=== PATIENT | female | born 1970 | race Caucasian/White ===

== ENCOUNTER → 2018-12-12 | Outpatient (CLI) | payer OTHER ==
--- NOTE | 2018-12-12 14:35 | MM ---
Reason for exam: screening (asymptomatic). Baseline mammogram. History: Patient is postmenopausal. Family history of breast cancer in maternal grandmother. Physical Findings: Nurse did not find any significant physical abnormalities on exam. (nurse MJ) MG Screening Mammo w CAD Bilateral CC and MLO view(s) were taken. No prior studies available for comparison. There are scattered fibroglandular densities. No suspicious abnormality. ASSESSMENT: Negative, BI-RAD 1 RECOMMENDATION: Routine screening mammogram of both breasts in 1 year.
== END | disposition home or self-care (01) ==
LOC: RADMAMWWP 12:53
PROVIDERS: ATTEND Family Medicine
DX: Z12.31 Encounter for screening mammogram for malignant neoplasm of breast (principal)
CPT/HCPCS: 77067

== ENCOUNTER → 2019-01-01 | Outpatient (CLI) | payer OTHER ==
--- NOTE | 2019-01-01 10:47 | US ---
EXAMINATION TYPE: US thyroid st tissue head/neck DATE OF EXAM: 01/01/2019 COMPARISON: NONE CLINICAL HISTORY: E04.9 NONTOXIC GOITER. Goiter GLAND SIZE: Right Lobe: 6.1 x 2.5 x 3.8 cm Overall Parenchyma: heterogenous Left Lobe: 6.3 x 2.9 x 2.9 cm Overall Parenchyma: heterogeneous Isthmus Thickness: 1.0 cm NODULES RIGHT: # of nodules measured on right: 1 1. 1.2 X 1.1 x 1.2 cm echogenic solid nodule at the mid pole with well-defined margins; . This nod ule is wider than tall and shows intranodular vascularity. Prior size: no prior LEFT: # of nodules measured on left: 0 ISTHMUS: # of nodules measured in the isthmus: 0 Bilateral neck scanned, lymph nodes noted left neck Heterogeneous, enlarged thyroid gland. Hyperechoic areas noted right lobe with largest measured IMPRESSION: Thyromegaly with findings suggestive of thyroiditis. 1.2 cm solid nodule right thyroid noted.
== END | disposition home or self-care (01) ==
LOC: RADUSWWP 09:53
PROVIDERS: ATTEND Family Medicine
DX: E04.9 Nontoxic goiter, unspecified (principal)
CPT/HCPCS: 76536

== ENCOUNTER → 2019-01-15 | Outpatient (CLI) | payer OTHER ==
[2019-01-15 18:35] LABS: T4, Free (Free Thyroxine) 1.5 ng/dL (0.80-1.80)
== END | disposition home or self-care (01) ==
LOC: LABWHC1 14:48
PROVIDERS: ATTEND Surgery Plastic and Reconstructive Surgery
DX: E04.1 Nontoxic single thyroid nodule (principal)
CPT/HCPCS: 36415; 84439; 84443; 84481

== ENCOUNTER 2019-01-25 09:10 | Day surgery (SDC) | payer OTHER ==
[2019-01-25 09:33] VITALS: TEMP 98
[2019-01-25 11:37] VITALS: BP 139/88; PULSE 74; RESP 16
--- NOTE | 2019-01-25 13:30 | US ---
EXAMINATION TYPE: US FNA thyroid first lesion DATE OF EXAM: 01/25/2019 COMPARISON: Ultrasound thyroid 01/01/2019 HISTORY: Thyroid nodule. Maximal barrier technique was utilized. After informed consent, skin overlying the dominant hyperech oic lesion in the right lobe of the gland was localized with ultrasound and the overlying skin preppe d and draped. Ultrasound was utilized using sterile technique. Lidocaine was used for local anesthesi a. Five passes with a 25-gauge needle were made into the nodule and aspirated specimen was submitted to cytology. Following the procedure hemostasis achieved. No immediate complication. The patient discharged in stable condition. IMPRESSION: STATUS POST ULTRASOUND GUIDED FINE NEEDLE ASPIRATION OF THYROID NODULE, PATHOLOGY IS PEND ING. THIS PROCEDURE WAS PERFORMED BY THE UNDERSIGNED.
== END 2019-01-25 11:20 | disposition home or self-care (01) ==
LOC: RADPROMAIN 09:10
PROVIDERS: ATTEND Surgery Plastic and Reconstructive Surgery
DX: E04.1 Nontoxic single thyroid nodule (principal)
CPT/HCPCS: 10005; 88173; 88305

== ENCOUNTER 2019-04-06 16:47 | Emergency (ER) | payer OTHER ==
[2019-04-06 16:51] VITALS: BP 126/80; PULSE 94; RESP 18; TEMP 97.8
[2019-04-06] MEDS ORDERED: PENICILLIN VK 500MG STARTER 4 TAB BTL PO STA (17:06)
[2019-04-06] MEDS ORDERED: ACET/COD 300 MG/30 MG STARTER PACK 6 TAB BTL PO STA (17:06)
--- NOTE | 2019-04-06 17:07 | ED ---
ENT HPI - General Chief complaint: Dental/Oral Stated complaint: Dental Source: patient Mode of arrival: ambulatory Limitations: no limitations - History of Present Illness Initial comments: 49-year-old female presenting for chief complaint of right lower dental pain. Patient states she has had multiple carious teeth as well as cracked teeth. She states she's had a cracked first quite some time. Patient states he began to develop pain yesterday. She is concerned she is helping infection. Patient has swelling of the face below the tongue of the neck she does fever chills night sweats or or flulike symptoms. Patient is no other complaints. Remaining review of system negative. Upon arrival patient appears well no signs acute distress. - Related Data Home Medications Medication Instructions Recorded Confirmed Levothyroxine Sodium [Levoxyl] 75 mcg PO DAILY 01/16/19 01/25/19 Previous Rx's Medication Instructions Recorded Penicillin V Potassium [Pen Vee K] 500 mg PO QID 7 Days #28 tablet 04/06/19 Allergies Allergy/AdvReac Type Severity Reaction Status Date / Time morphine Allergy Itching Verified 04/07/19 13:19 Review of Systems ROS Statement: Those systems with pertinent positive or pertinent negative responses have been documented in the HPI. ROS Other: All systems not noted in ROS Statement are negative. Past Medical History Past Medical History: Thyroid Disorder History of Any Multi-Drug Resistant Organisms: None Reported Past Surgical History: Section Additional Past Surgical History / Comment(s): eye surgery Past Psychological History: No Psychological Hx Reported Smoking Status: Never smoker Past Alcohol Use History: Rare Past Drug Use History: None Reported General Exam - General Exam Comments Initial Comments: General: The patient is awake and alert, in no distress, and does not appear acutely ill. Eye: Pupils are equal, round and reactive to light, extra-ocular movements are intact. No nystagmus. There is normal conjunctiva bilaterally. No signs of icterus. Ears, nose, mouth and throat: There are moist mucous membranes and no oral lesions. No palpable abscess adjacent to the gingival mucosa. Patient has focal cracked and carious teeth. Tenderness to to percussion of tooth #32. No swelling below tongue pain to palpation below the tongue. No facial swelling swelling below the angle of the mandible. Neck: The neck is supple, there is no tenderness or JVD. Cardiovascular: There is a regular rate and rhythm. No murmur, rub or gallop is appreciated. Respiratory: Lungs are clear to auscultation, respirations are non-labored, breath sounds are equal. No wheezes, stridor, rales, or rhonchi. Musculoskeletal: Normal ROM, no tenderness. Strength 5/5. Sensation intact. Pulses equal bilaterally 2+. Neurological: A&O x 3. CN II-XII intact, There are no obvious motor or sensory deficits. Coordination appears grossly intact. Speech is normal. Skin: Skin is warm and dry and no rashes or lesions are noted. Psychiatric: Cooperative, appropriate mood & affect, normal judgment. Limitations: no limitations Course Vital Signs 04/06/19 16:48 Temperature 97.8 F Pulse Rate 94 Respiratory 18 Rate Blood Pressure 126/80 O2 Sat by Pulse 98 Oximetry Medical Decision Making - Medical Decision Making Nontoxic-appearing 49yo female presented for dental pain pain to percussion to tooth #32. Patient does not appear septic no signs of Drew's angina. Patient be treated penicillin VK. Patient didn't starter pack of Tylenol No. 3 for pain management. Discussed risks involved and appropriate use. Patient verbalized understanding. Patient was discharged pain well with instruction to follow-up with dentist for tooth extraction. Case discussed with attending provider Dr. Andrea Disposition Clinical Impression: Pain, dental Disposition: HOME SELF-CARE Condition: Good Instructions (If sedation given, give patient instructions): Dental Abscess (ED) Additional Instructions: Please use medication as discussed, every 6 hours. Please follow-up with dentist in the next week for extraction. Next dose of PEN VK is 11PM. Please return to emergency room if the symptoms increase or worsen or for any other concerns, neck swelling, increasing facial swelling, difficulty breathing/swallowing, fevers, swelling below the tongue. Prescriptions: Penicillin V Potassium [Pen Vee K] 500 mg PO QID 7 Days #28 tablet Is patient prescribed a controlled substance at d/c from ED?: No Referrals: Tone Perdomo MD [Primary Care Provider] - 1-2 days Time of Disposition: 17:06
== END 2019-04-06 17:18 | disposition home or self-care (01) ==
LOC: EC 16:47
DX: K08.89 Other specified disorders of teeth and supporting structures (principal); K02.9 Dental caries, unspecified; K03.81 Cracked tooth; E07.9 Disorder of thyroid, unspecified; Z79.890 Hormone replacement therapy; Z88.5 Allergy status to narcotic agent
CPT/HCPCS: 99282

== ENCOUNTER 2019-04-07 12:59 | Emergency (ER) | payer OTHER ==
[2019-04-07 13:19] VITALS: RESP 18
[2019-04-07] MEDS ORDERED: CLINDAMYCIN 600 MG in DEXTROSE 5% IN WATER 50 ML IVPB STA ×2 (13:31)
--- NOTE | 2019-04-07 13:44 | ED ---
ENT HPI - General Chief complaint: Dental/Oral Stated complaint: recheck dental abscess Time Seen by Provider: 04/07/19 13:20 Source: patient, RN notes reviewed Mode of arrival: ambulatory Limitations: no limitations - History of Present Illness Initial comments: 49-year-old female presented emergency from for right-sided facial swelling, dental abscess. Patient reports that she was seen here yesterday for this dental infection. Patient was started on antibiotics and pain meds. She states she has extensive swelling today and states that she has pain in her jaw and neck at this time. Patient states she has difficulty opening close her mouth. Patient reports no difficulty swallowing. - Related Data Home Medications Medication Instructions Recorded Confirmed Levothyroxine Sodium [Levoxyl] 75 mcg PO DAILY 01/16/19 01/25/19 Previous Rx's Medication Instructions Recorded Penicillin V Potassium [Pen Vee K] 500 mg PO QID 7 Days #28 tablet 04/06/19 Allergies Allergy/AdvReac Type Severity Reaction Status Date / Time morphine Allergy Itching Verified 04/07/19 13:19 Review of Systems ROS Statement: Those systems with pertinent positive or pertinent negative responses have been documented in the HPI. ROS Other: All systems not noted in ROS Statement are negative. Past Medical History Past Medical History: Thyroid Disorder History of Any Multi-Drug Resistant Organisms: None Reported Past Surgical History: Section Additional Past Surgical History / Comment(s): eye surgery Past Psychological History: No Psychological Hx Reported Smoking Status: Never smoker Past Alcohol Use History: Rare Past Drug Use History: None Reported General Exam Limitations: no limitations General appearance: alert, in no apparent distress Head exam: Present: atraumatic, normocephalic, normal inspection Eye exam: Present: normal appearance, PERRL, EOMI. Absent: scleral icterus, conjunctival injection, periorbital swelling ENT exam: Present: mucous membranes moist, TM's normal bilaterally, normal external ear exam. Absent: normal exam, normal oropharynx (Dental caries, dental fracture , there is notable swelling her right lower mandibular region that is tender with palpation. Patient reports pain with opening and closing of the jaw) Neurological exam: Present: alert Skin exam: Present: warm, dry, intact, normal color. Absent: rash Course Vital Signs 04/07/19 13:18 Temperature 98.6 F Pulse Rate 92 Respiratory 18 Rate Blood Pressure 105/67 O2 Sat by Pulse 97 Oximetry Medical Decision Making - Medical Decision Making 49-year-old female presented for recheck of her dental infection. Patient had CT and lab work CT shows evidence of sialitis no evidence of abscess. I did recommend patient continue antibiotics as directed she was given a dose in emergency department. She is follow-up with dental surgery return for any worsening. - Lab Data Result diagrams: 04/07/19 13:46 04/07/19 13:46 Lab Results 04/07/19 04/07/19 04/07/19 Range/Units 13:46 13:46 13:46 WBC 9.8 (3.8-10.6) k/uL RBC 4.70 (3.80-5.40) m/uL Hgb 13.7 (11.4-16.0) gm/dL Hct 41.0 (34.0-46.0) % MCV 87.3 (80.0-100.0) fL MCH 29.2 (25.0-35.0) pg MCHC 33.5 (31.0-37.0) g/dL RDW 13.4 (11.5-15.5) % Plt Count 446 (150-450) k/uL Neutrophils % 78 % Lymphocytes % 14 % Monocytes % 6 % Eosinophils % 1 % Basophils % 0 % Neutrophils # 7.6 (1.3-7.7) k/uL Lymphocytes # 1.4 (1.0-4.8) k/uL Monocytes # 0.5 (0-1.0) k/uL Eosinophils # 0.1 (0-0.7) k/uL Basophils # 0.0 (0-0.2) k/uL Sodium 140 (137-145) mmol/L Potassium 4.2 (3.5-5.1) mmol/L Chloride 104 (98-107) mmol/L Carbon Dioxide 28 (22-30) mmol/L Anion Gap 8 mmol/L BUN 10 (7-17) mg/dL Creatinine 0.69 (0.52-1.04) mg/dL Est GFR (CKD-EPI)AfAm >90 (>60 ml/min/1.73 sqM) Est GFR (CKD-EPI)NonAf >90 (>60 ml/min/1.73 sqM) Glucose 103 H (74-99) mg/dL Plasma Lactic Acid Lan 0.7 (0.7-2.0) mmol/L Calcium 9.5 (8.4-10.2) mg/dL Disposition Clinical Impression: Fracture of tooth, Dental infection Disposition: HOME SELF-CARE Condition: Stable Instructions (If sedation given, give patient instructions): Toothache (ED) Additional Instructions: Please return to the Emergency Department if symptoms worsen or any other concerns. Is patient prescribed a controlled substance at d/c from ED?: No Referrals: Tone Perdomo MD [Primary Care Provider] - 1-2 days Floyd Bermudez DDS [STAFF PHYSICIAN] - 1-2 days Time of Disposition: 15:39
[2019-04-07 14:03] LABS: Basophils % (A) 0 %; Eosinophils # (A) 0.1 k/uL (0-0.7); Eosinophils % (A) 1 %; HGB 13.7 gm/dL (11.4-16.0); Lymphocytes # (A) 1.4 k/uL (1.0-4.8); Lymphocytes % (A) 14 %; MCH 29.2 pg (25.0-35.0); MCHC 33.5 g/dL (31.0-37.0); MCV 87.3 fL (80.0-100.0); Mean Platelet Volume 5.3; Monocytes # (A) 0.5 k/uL (0-1.0); Monocytes % (A) 6 %; Neutrophils # (A) 7.6 k/uL (1.3-7.7); Neutrophils % (A) 78 %; Platelet Count 446 k/uL (150-450); RDW 13.4 % (11.5-15.5); WBC 9.8 k/uL (3.8-10.6)
[2019-04-07 14:20] LABS: African American GFR (CKD) >90 (>60 ml/min/1.73 sqM); Anion Gap 8 mmol/L; Blood Urea Nitrogen 10 mg/dL (7-17); Calcium 9.5 mg/dL (8.4-10.2); Carbon Dioxide 28 mmol/L (22-30); Chloride 104 mmol/L (98-107); Glucose 103 mg/dL (74-99); Potassium 4.2 mmol/L (3.5-5.1); Sodium 140 mmol/L (137-145)
--- NOTE | 2019-04-07 14:51 | CT ---
EXAMINATION TYPE: CT soft tissue neck w con DATE OF EXAM: 04/07/2019 2:42 PM COMPARISON: None HISTORY: Dental infection right side CT DLP: mGycm Automated exposure control for dose reduction was used. CONTRAST: CT scan of the neck is performed following , patient injected with mL of . Axial images are obtained , coronal and sagittal reformatted images are reviewed. The contrast was Isovue 100 mL FINDINGS: There is normal branching pattern of the great vessels on the aortic arch. There is no sign of medias tinal adenopathy. There is mild heterogeneous enlargement of the thyroid gland consistent with multin odular goiter. Visualized trachea appears normal. Epiglottis appears normal. Submandibular salivary g lands appear normal. Parotid glands are symmetric. There are a few submandibular lymph nodes that adin sure up to 1 cm. There are few anterior triangle cervical lymph nodes on the right side more than the left that measure up to 10 mm. There is subcutaneous edema adjacent to the right hemimandible. The m andibular ring is intact. Temporomandibular joints appear normal. I see no focal bone destruction. Th e maxilla is intact. There is fairly normal aeration of the visualized paranasal sinuses. The tongue appears normal. IMPRESSION: Subcutaneous edema consistent with cellulitis adjacent to the right hemimandible. No sig n of osteomyelitis. Mild asymmetric right side cervical lymphadenopathy. No evidence of an abscess.
[2019-04-07] MEDS ORDERED: PENICILLIN VK 500MG STARTER 4 TAB BTL PO STA (15:34)
[2019-04-07] MEDS ORDERED: ACET/COD 300 MG/30 MG STARTER PACK 6 TAB BTL PO STA (15:34)
[2019-04-07 15:52] VITALS: BP 92/67; PULSE 81; TEMP 97.9
== END 2019-04-07 16:08 | disposition home or self-care (01) ==
LOC: EC 12:59
DX: K04.7 Periapical abscess without sinus (principal); S02.5XXA Fracture of tooth (traumatic), initial encounter for closed fracture; K11.20 Sialoadenitis, unspecified; E07.9 Disorder of thyroid, unspecified; Z79.890 Hormone replacement therapy; Z88.5 Allergy status to narcotic agent; X58.XXXA Exposure to other specified factors, initial encounter
CPT/HCPCS: 36415; 80048; 83605; 85025; 87040; 70491; 99284; 96365; Q9967

== ENCOUNTER 2019-08-28 10:37 | Emergency (ER) | payer OTHER ==
[2019-08-28 10:40] VITALS: RESP 18; TEMP 97.7
--- NOTE | 2019-08-28 10:51 | ED ---
URI HPI - General Chief Complaint: Upper Respiratory Infection Stated Complaint: Congestion Time Seen by Provider: 08/28/19 10:41 Source: patient, RN notes reviewed Mode of arrival: ambulatory Limitations: no limitations - History of Present Illness Initial Comments: 49-year-old female presents emergency Department chief complaint fever cough congestion bodyaches. Patient states symptoms started on . She states she initially thought it was just ALLERGIES but states it's not improving. Patient states even taken many [id number] cough and cold medications with no relief. Her daughter was sick with similar symptoms. Patient denies any significant lung history including asthma or COPD. Denies any neck pain or neck stiffness she does have some right ear pain and sinus pressure. - Related Data Home Medications Medication Instructions Recorded Confirmed Levothyroxine Sodium [Levoxyl] 75 mcg PO DAILY 01/16/19 01/25/19 Previous Rx's Medication Instructions Recorded Penicillin V Potassium [Pen Vee K] 500 mg PO QID 7 Days #28 tablet 04/06/19 Amoxicillin/Potassium Clav 1 tab PO Q12HR #20 tab 08/28/19 [Augmentin 875-125 Tablet] Allergies Allergy/AdvReac Type Severity Reaction Status Date / Time morphine Allergy Itching Verified 08/28/19 10:40 Review of Systems ROS Statement: Those systems with pertinent positive or pertinent negative responses have been documented in the HPI. ROS Other: All systems not noted in ROS Statement are negative. Past Medical History Past Medical History: Thyroid Disorder History of Any Multi-Drug Resistant Organisms: None Reported Past Surgical History: Section Additional Past Surgical History / Comment(s): eye surgery Past Psychological History: No Psychological Hx Reported Smoking Status: Never smoker Past Alcohol Use History: Rare Past Drug Use History: None Reported General Exam Limitations: no limitations General appearance: alert, in no apparent distress Head exam: Present: atraumatic, normocephalic, normal inspection Eye exam: Present: normal appearance, PERRL, EOMI. Absent: scleral icterus, conjunctival injection, periorbital swelling ENT exam: Present: normal exam, normal oropharynx, mucous membranes moist, TM's normal bilaterally Neck exam: Present: normal inspection, full ROM. Absent: tenderness, meningismus, lymphadenopathy Respiratory exam: Present: normal lung sounds bilaterally. Absent: respiratory distress, wheezes, rales, rhonchi, stridor Cardiovascular Exam: Present: regular rate, normal rhythm, normal heart sounds. Absent: systolic murmur, diastolic murmur, rubs, gallop, clicks Neurological exam: Present: alert, oriented X3, CN II-XII intact Skin exam: Present: warm, dry, intact, normal color. Absent: rash Course Vital Signs 08/28/19 10:37 Temperature 97.7 F Pulse Rate 101 H Respiratory 18 Rate Blood Pressure 124/88 O2 Sat by Pulse 98 Oximetry Medical Decision Making - Medical Decision Making Influenza is negative, chest x-ray does not show any definite pneumonia. Patient has acute sinusitis will be treated with Augmentin at this time return parameters were discussed. - Lab Data Lab Results 08/28/19 Range/Units 10:48 Influenza Type A RNA Not Detected (Not Detectd) Influenza Type B (PCR) Not Detected (Not Detectd) Disposition Clinical Impression: Sinusitis, Bronchitis Disposition: HOME SELF-CARE Condition: Stable Instructions (If sedation given, give patient instructions): Upper Respiratory Infection (ED) Additional Instructions: Please return to the Emergency Department if symptoms worsen or any other concerns. Prescriptions: Amoxicillin/Potassium Clav [Augmentin 875-125 Tablet] 1 tab PO Q12HR #20 tab Is patient prescribed a controlled substance at d/c from ED?: No Referrals: Tone Perdomo MD [Primary Care Provider] - 1-2 days Time of Disposition: 11:41
--- NOTE | 2019-08-28 11:03 | XR ---
EXAMINATION TYPE: XR chest 2V DATE OF EXAM: 08/28/2019 COMPARISON: NONE HISTORY: Chest pain TECHNIQUE: Frontal and lateral views of the chest are obtained. FINDINGS: There is no focal air space opacity. No evidence for pneumothorax. No pleural effusion. The cardiac silhouette size is within normal limits. The osseous structures are grossly intact. IMPRESSION: 1. No acute cardiopulmonary process.
[2019-08-28 11:47] VITALS: BP 119/85; PULSE 96
== END 2019-08-28 11:50 | disposition home or self-care (01) ==
LOC: EC 10:37
DX: J40 Bronchitis, not specified as acute or chronic (principal); J01.90 Acute sinusitis, unspecified; E07.9 Disorder of thyroid, unspecified; Z88.5 Allergy status to narcotic agent; Z79.890 Hormone replacement therapy
CPT/HCPCS: 71046; 87502; 99283

== ENCOUNTER → 2020-03-02 | Outpatient (CLI) | payer OTHER ==
--- NOTE | 2020-03-02 17:09 | BD ---
EXAMINATION TYPE: Axial Bone Density DATE OF EXAM: 03/02/2020 COMPARISON: NONE CLINICAL HISTORY: Height: 60 Weight: 187.3 FRAX RISK QUESTIONS: Alcohol (3 or more units per day): no Family History (Parent hip fracture): no Glucocorticoids (More than 3mos): no (Ex: prednisone, prednisolone, methylprednisolone, dexamethasone, and hydrocortisone). History of Fracture in Adulthood: no Secondary Osteoporosis: 1. Type 1 Diabetes: no 2. Hyperthyroidism: no 3. Menopause before 45: yes 4. Malnutrition: no 5. Chronic liver disease: no Rheumatoid Arthritis: no Current Tobacco Use: no RISK FACTORS HISTORY OF: Family History of Osteoporosis: yes Active: yes Diet low in dairy products/other sources of calcium: yes Postmenopausal woman: 43 years old Lost more than 2 inches in height since high school: no MEDICATIONS: cholesterol meds Thyroid Medications: levothyroxine How Lon year Additional History: EXAM MEASUREMENTS: Bone mineral densitometry was performed using the [employer] System. Bone mineral density as measured about the Lumbar spine is: ----- L1-L4(G/cm2): 1.058 T Score Values are as follows: ----- L2: -0.9 ----- L3: -0.8 ----- L4: -0.9 ----- L1-L4: -1.0 Bone mineral density : baseline Bone mineral density about the R hip (g/cm2): 0.880 Bone mineral density about the L hip (g/cm2):0.863 T Score values are as follows: -----R Neck: -1.1 -----L Neck: -1.3 -----R Total: -0.1 -----L Total: -0.1 Bone mineral density : baseline IMPRESSION: Normal (Values between +1 and -1 indicate normal bone mass). Consider repeating this study in 5 year s or sooner if there is some new clinical indication. NOTE: T-SCORE=SD OF THE YOUNG ADULT MEAN.
--- NOTE | 2020-03-03 09:27 | MM ---
Reason for exam: screening (asymptomatic). Last mammogram was performed 1 year and 3 months ago. History: Patient is postmenopausal. Family history of breast cancer in maternal grandmother. Physical Findings: A clinical breast exam by your physician is recommended on an annual basis and results should be correlated with mammographic findings. MG Screening Mammo w CAD Bilateral CC and MLO view(s) were taken. Prior study comparison: December 12, 2018, bilateral MG screening mammo w CAD. There are scattered fibroglandular densities. Finding: There are indeterminate grouped/clustered calcifications in the anterior position of the left breast on MLO view only. There is no discrete abnormality. ASSESSMENT: Incomplete: need additional imaging evaluation, BI-RAD 0 RECOMMENDATION: Special view mammogram of the left breast. [facility] will attempt to contact patient to return for supplemental views.
== END | disposition home or self-care (01) ==
LOC: RADMAMWWP 09:59
PROVIDERS: ATTEND Family Medicine
DX: Z12.31 Encounter for screening mammogram for malignant neoplasm of breast (principal); Z78.0 Asymptomatic menopausal state
CPT/HCPCS: 77067; 77080

== ENCOUNTER → 2020-03-06 | Outpatient (CLI) | payer OTHER ==
--- NOTE | 2020-03-06 08:31 | MM ---
Reason for exam: additional evaluation requested from abnormal screening. Last mammogram was performed less than 1 month ago. History: Patient is postmenopausal. Family history of breast cancer in maternal grandmother. Physical Findings: Nurse did not find any significant physical abnormalities on exam. MG Work Up Mamm w CAD LT CC with magnification, MLO with magnification, ML with magnification, and ML view(s) were taken of the left breast. Prior study comparison: March 02, 2020, bilateral MG screening mammo w CAD. December 12, 2018, bilateral MG screening mammo w CAD. There are scattered fibroglandular densities. Faint grouped calcifications questionably seen inferiorly and anteriorly only on one ML magnification view, not seen on any other view. 6 month follow up recommended. These results were verbally communicated with the patient and result sheet given to the patient on 03/06/20. ASSESSMENT: Probably benign, BI-RAD 3 RECOMMENDATION: Follow-up diagnostic mammogram of the left breast in 6 months.
== END | disposition home or self-care (01) ==
LOC: RADMAMWWP 06:58
PROVIDERS: ATTEND Family Medicine
DX: R92.8 Other abnormal and inconclusive findings on diagnostic imaging of breast (principal)
CPT/HCPCS: 77065

== ENCOUNTER → 2020-06-01 | Outpatient (CLI) | payer OTHER ==
[2020-06-01 10:58] LABS: Basophils % (A) 1 %; Eosinophils % (A) 0 %; HCT 42.5 % (34.0-46.0); HGB 13.4 gm/dL (11.4-16.0); Lymphocytes # (A) 1.3 k/uL (1.0-4.8); Lymphocytes % (A) 21 %; MCH 27.5 pg (25.0-35.0); MCHC 31.6 g/dL (31.0-37.0); MCV 86.9 fL (80.0-100.0); Mean Platelet Volume 6.3; Monocytes # (A) 0.3 k/uL (0-1.0); Monocytes % (A) 5 %; Neutrophils # (A) 4.6 k/uL (1.3-7.7); Neutrophils % (A) 72 %; Platelet Count 402 k/uL (150-450); RBC 4.89 m/uL (3.80-5.40); RDW 13.6 % (11.5-15.5); WBC 6.4 k/uL (3.8-10.6)
[2020-06-01 15:48] LABS: Albumin 4.4 g/dL (3.80-4.90); Albumin/Globulin Ratio 1.69 (1.60-3.17); Anion Gap 7.8 mmol/L (4.00-12.00); BUN/Creat Ratio 17.5 Ratio (12.00-20.00); Calcium 9.6 mg/dL (8.7-10.3); Carbon Dioxide 25.2 mmol/L (21.6-31.8); Chol/HDL Ratio 3.82; Globulin 2.6 g/dL (1.6-3.3); LDL Cholesterol,Calculated 120.4 mg/dL (0.0-131.0); Non-African American GFR(CKD) 87.2 (60.0-200.0); Potassium 4.2 mmol/L (3.5-5.5); Total Bilirubin 0.5 mg/dL (0.2-1.2); VLDL Calculation 23.6 mg/dL (5.00-40.00)
== END | disposition home or self-care (01) ==
LOC: LABWHC1 10:00
PROVIDERS: ATTEND Family Medicine
DX: E78.5 Hyperlipidemia, unspecified (principal); E03.9 Hypothyroidism, unspecified
CPT/HCPCS: 36415; 80053; 80061; 84439; 84443; 85025

== ENCOUNTER → 2020-09-11 | Outpatient (CLI) | payer OTHER ==
--- NOTE | 2020-09-11 11:05 | MM ---
Reason for exam: follow-up at short interval from prior study. Last mammogram was performed 6 months ago. History: Patient is postmenopausal. Family history of breast cancer in maternal grandmother. Physical Findings: Nurse did not find any significant physical abnormalities on exam. MG Diagnostic Mammo LT w CAD CC and MLO view(s) were taken of the left breast. Prior study comparison: March 06, 2020, left breast MG work up mamm w CAD LT. March 02, 2020, bilateral MG screening mammo w CAD. There are scattered fibroglandular densities. No significant new findings when compared with previous films. These results were verbally communicated with the patient and result sheet given to the patient on 09/11/20. ASSESSMENT: Negative, BI-RAD 1 RECOMMENDATION: Return to routine screening mammogram schedule for both breasts. Back on schedule for January 2021.
== END | disposition home or self-care (01) ==
LOC: RADMAMWWP 09:31
PROVIDERS: ATTEND Family Medicine
DX: R92.8 Other abnormal and inconclusive findings on diagnostic imaging of breast (principal)
CPT/HCPCS: 77065

== ENCOUNTER → 2021-03-19 | Outpatient (CLI) | payer OTHER ==
--- NOTE | 2021-03-19 12:05 | CT ---
EXAMINATION TYPE: CT brain wo con DATE OF EXAM: 03/19/2021 COMPARISON: 12/01/2013 INDICATION: Dizziness and Headaches DLP: 999.8 mGycm, Automated exposure control for dose reduction was used. CONTRAST: None CT of the brain is performed utilizing 3 mm thick sections through the posterior fossa and 3 mm thick sections through the remaining calvarium. Study is performed within 24 hours of arrival to the hosp [facility]. No abnormal hyperdensity is present to suggest an acute intracranial hemorrhage. No mass lesion is evident. No acute infarcts are evident. Physiologic basal ganglion calcification is present. Ventricles and sulci are appropriate for the patient age. Paranasal sinuses and mastoid air cells within the [id number] are clear. IMPRESSIONS: 1. No acute intracranial process.
== END | disposition home or self-care (01) ==
LOC: RADCTMAIN 07:06
PROVIDERS: ATTEND Family Medicine
DX: R51.9 Headache, unspecified (principal); R42 Dizziness and giddiness
CPT/HCPCS: 70450

== ENCOUNTER → 2021-05-19 | Outpatient (CLI) | payer OTHER ==
--- NOTE | 2021-05-19 13:53 | US ---
EXAMINATION TYPE: US thyroid st tissue head/neck DATE OF EXAM: 05/19/2021 COMPARISON: 01/01/2019 CLINICAL HISTORY: 51-year-old female E04.9 Goiter. TECHNIQUE: Multiple sonographic images of the kidneys and bladder are obtained. FINDINGS: GLAND SIZE: Right Lobe: 7.1x3.4x2.7 cm Overall Parenchyma: Markedly heterogenous Left Lobe: 5.7x2.3x2.8 cm Overall Parenchyma: Markedly heterogeneous Isthmus Thickness: 0.7 cm NODULES RIGHT: # of nodules measured on right: 2 1. 1.2 X 1.1 x 0.7 cm, mid mid, solid or almost completely solid, hyperechoic nodule, which is wide r than tall, with smooth margins, without echogenic foci. Prior size: Not measured 2. 1.4 X 1.1 x 1.1 cm, mid mid, solid or almost completely solid, hyperechoic nodule, which is wide r than tall, with smooth margins, without echogenic foci. Prior size: 1.2 x 1.2 x 1.1 cm LEFT: # of nodules measured on left: 0 ISTHMUS: # of nodules measured in the isthmus: 0 Bilateral neck scanned, no evidence of lymphadenopathy. IMPRESSION: 1. Thyromegaly with severely heterogeneous parenchyma suggesting goiter. 2. About 1.2 cm TR 3 nodule at the right mid pole was previously not measured. 3. A 1.4 cm TR3 nodule also on the right previously measured 1.2 cm.
== END | disposition home or self-care (01) ==
LOC: RADUSWWP 09:33
PROVIDERS: ATTEND Family Medicine
DX: E04.2 Nontoxic multinodular goiter (principal)
CPT/HCPCS: 76536

== ENCOUNTER → 2021-07-15 | Outpatient (CLI) | payer OTHER ==
--- NOTE | 2021-07-15 08:08 | CT ---
EXAMINATION TYPE: CT soft tissue neck w con DATE OF EXAM: 07/15/2021 HISTORY: swelling rt side, dysphagia COMPARISON: Prior CT neck April 07, 2019 CT DLP: 609 mGycm. Automated Exposure Control for Dose Reduction was Utilized. TECHNIQUE: CT scan of the neck is performed with IV Contrast, patient injected with 100 mL of Isovue 300, axial images are obtained, coronal and sagittal reformatted images are reviewed. FINDINGS: Airway: Stable heterogeneous enlarged thyroid with lobulated contour consistent with goiter. Findings correlate with May 19, 2021 ultrasound. Parotid/submandibular glands: No gross abnormality seen. Carotid/Vascular Structures: Dominant right vertebral artery filling the basilar artery is redemonstr ated Osseous Structures: No significant abnormality. Other: Metallic BB placed at level palpable abnormality right submandibular region at level of hyoid bone axial images 30 and 37. There is no suspicious solid or cystic mass or abnormal fluid collection at this level. There is a stable prominent structure deep to the SCM measuring 1.1 x 0.5 cm axial im age 36 thought to reflect prominent but benign-appearing lymph node unchanged from prior study. There is slightly more prominent superior extension of enlarged right thyroid lobe deep to this redemonstr ated. No significant change from 2019 CT. No abnormal greater than 1 cm neck adenopathy. Few prominen t scattered subcentimeter lymph nodes are redemonstrated bilaterally. IMPRESSION: Thyroid goiter redemonstrated and grossly stable. No new or enlarging suspicious mass or adenopathy identified.
--- NOTE | 2021-07-15 08:33 | FL ---
EXAMINATION TYPE: FL barium swallow DATE OF EXAM: 07/15/2021 CLINICAL INDICATION: 51-year-old female R22.1Swelling,mass,lump,R13.19 Dysphagia COMPARISON: Correlation CT same day Total Fluoroscopy Time: 1 minute 50 seconds 38 images obtained. FINDINGS: The swallowing mechanism is normal and hypopharyngeal anatomy is preserved. The cervical and thoracic portions have a normal course and caliber. No abnormal narrowing of the cer vical esophagus in the expected region of the thyroid gland. There is very mild esophageal dysmotility with blunted secondary stripping waves allowing for some mi ld residual contrast remaining scattered within the thoracic esophagus especially when the patient is prone/supine. The mucosa is normal and no persistent filling defect is encountered. No hiatal hernia is present. No gastroesophageal reflux is identified. IMPRESSION: 1. Very mild esophageal dysmotility with some blunted secondary stripping waves. 2. No abnormal esophageal narrowing or mucosal lesion. 3. No hiatal hernia identified.
== END | disposition home or self-care (01) ==
LOC: RADCTMAIN 07:01
PROVIDERS: ATTEND Surgery Plastic and Reconstructive Surgery
DX: E04.9 Nontoxic goiter, unspecified (principal); K22.4 Dyskinesia of esophagus
CPT/HCPCS: 74220; 70491; Q9967

== ENCOUNTER 2021-10-16 09:58 | Observation (INO) | payer OTHER ==
[2021-10-16] MEDS ORDERED: NITROGLYCERIN SL TABS 0.4 MG TAB SUBLINGUAL STA (10:17)
[2021-10-16] MEDS ORDERED: ASPIRIN 81 MG PO STA (10:17)
--- NOTE | 2021-10-16 10:19 | ED ---
General Adult HPI - General Chief complaint: Chest Pain Stated complaint: chest pain Time Seen by Provider: 10/16/21 10:07 Source: patient, RN notes reviewed Mode of arrival: ambulatory Limitations: no limitations - History of Present Illness Initial comments: Patient is a pleasant 51-year-old female presenting to the emergency Department with chest discomfort. Onset of symptoms was around 6 or 6:30 AM. Symptoms woke her from sleep. Discomfort is mild at this time. Discomfort feels like tightness. There is some discomfort also of the left mid upper back. Patient feels mildly short of breath. No nausea. No diaphoresis. No history of simila r symptoms previously. Symptoms do worsen somewhat with position changes as well as exertion. - Related Data Home Medications Medication Instructions Recorded Confirmed Levothyroxine Sodium [Levoxyl] 75 mcg PO DAILY 01/16/19 01/25/19 Previous Rx's Medication Instructions Recorded Penicillin V Potassium [Pen Vee K] 500 mg PO QID 7 Days #28 tablet 04/06/19 Amoxicillin/Potassium Clav 1 tab PO Q12HR #20 tab 08/28/19 [Augmentin 875-125 Tablet] Allergies Allergy/AdvReac Type Severity Reaction Status Date / Time morphine Allergy Itching Verified 10/16/21 10:03 Review of Systems ROS Statement: Those systems with pertinent positive or pertinent negative responses have been documented in the HPI. ROS Other: All systems not noted in ROS Statement are negative. Constitutional: Denies: fever Eyes: Denies: eye pain ENT: Denies: ear pain Respiratory: Reports: as per HPI. Denies: cough Cardiovascular: Reports: as per HPI, chest pain Endocrine: Denies: fatigue Gastrointestinal: Denies: abdominal pain Genitourinary: Denies: dysuria Musculoskeletal: Reports: as per HPI Skin: Denies: rash Neurological: Denies: weakness Past Medical History Past Medical History: Thyroid Disorder History of Any Multi-Drug Resistant Organisms: None Reported Past Surgical History: Section Additional Past Surgical History / Comment(s): eye surgery Past Psychological History: Depression Smoking Status: Never smoker Past Alcohol Use History: Rare Past Drug Use History: None Reported General Exam Limitations: no limitations General appearance: alert, in no apparent distress Head exam: Present: normocephalic Eye exam: Present: normal appearance Neck exam: Present: normal inspection Respiratory exam: Present: normal lung sounds bilaterally, chest wall tenderness (Mild discomfort left lateral rib) Cardiovascular Exam: Present: regular rate, normal rhythm Expanded Peripheral pulses: 2+: Radial (R), Radial (L), Posterior Tibialis (R), Posterior Tibialis (L), Dorsalis Pedis (R), Dorsalis Pedis (L) GI/Abdominal exam: Present: soft. Absent: tenderness Extremities exam: Present: normal inspection. Absent: pedal edema, calf tenderness Neurological exam: Present: alert Psychiatric exam: Present: normal affect, normal mood Skin exam: Present: normal color Course Vital Signs 10/16/21 10:00 Temperature 97.9 F Pulse Rate 101 H Respiratory 20 Rate Blood Pressure 123/83 O2 Sat by Pulse 100 Oximetry EKG Findings - EKG Comments: EKG Findings:: Sinus rhythm at 87. SC 161. QRS 105. QT 356. QTc 41. Normal axis. Incomplete right bundle-branch block. No acute ST change. Medical Decision Making - Medical Decision Making Patient reevaluated and resting comfortably in bed. No improvement with nitrog lycerin. Patient updated on results and plan. Case discussed with Dr. Trimble, who will admit for observation covering Dr. Perdomo. - Lab Data Result diagrams: 10/16/21 10:21 10/16/21 10:21 Lab Results 10/16/21 10/16/21 10/16/21 Range/Units 10:21 10:21 10:21 WBC 11.8 H (3.8-10.6) k/uL RBC 4.77 (3.80-5.40) m/uL Hgb 13.9 (11.4-16.0) gm/dL Hct 42.1 (34.0-46.0) % MCV 88.4 (80.0-100.0) fL MCH 29.2 (25.0-35.0) pg MCHC 33.1 (31.0-37.0) g/dL RDW 14.3 (11.5-15.5) % Plt Count 422 (150-450) k/uL MPV 6.6 Neutrophils % 83 % Lymphocytes % 12 % Monocytes % 3 % Eosinophils % 1 % Basophils % 0 % Neutrophils # 9.8 H (1.3-7.7) k/uL Lymphocytes # 1.4 (1.0-4.8) k/uL Monocytes # 0.4 (0-1.0) k/uL Eosinophils # 0.1 (0-0.7) k/uL Basophils # 0.1 (0-0.2) k/uL PT 10.1 (9.0-12.0) sec INR 0.9 (<1.2) APTT 25.8 (22.0-30.0) sec D-Dimer 0.20 (<0.60) mg/L FEU Sodium 139 (137-145) mmol/L Potassium 3.7 (3.5-5.1) mmol/L Chloride 106 (98-107) mmol/L Carbon Dioxide 23 (22-30) mmol/L Anion Gap 10 mmol/L BUN 16 (7-17) mg/dL Creatinine 0.83 (0.52-1.04) mg/dL Est GFR (CKD-EPI)AfAm >90 (>60 ml/min/1.73 sqM) Est GFR (CKD-EPI)NonAf 84 (>60 ml/min/1.73 sqM) Glucose 110 H (74-99) mg/dL Calcium 9.0 (8.4-10.2) mg/dL Magnesium 1.9 (1.6-2.3) mg/dL Total Bilirubin 0.5 (0.2-1.3) mg/dL AST 19 (14-36) U/L ALT 20 (4-34) U/L Alkaline Phosphatase 98 (38-126) U/L Troponin I (0.000-0.034) ng/mL Total Protein 7.9 (6.3-8.2) g/dL Albumin 4.1 (3.5-5.0) g/dL 10/16/21 Range/Units 10:21 WBC (3.8-10.6) k/uL RBC (3.80-5.40) m/uL Hgb (11.4-16.0) gm/dL Hct (34.0-46.0) % MCV (80.0-100.0) fL MCH (25.0-35.0) pg MCHC (31.0-37.0) g/dL RDW (11.5-15.5) % Plt Count (150-450) k/uL MPV Neutrophils % % Lymphocytes % % Monocytes % % Eosinophils % % Basophils % % Neutrophils # (1.3-7.7) k/uL Lymphocytes # (1.0-4.8) k/uL Monocytes # (0-1.0) k/uL Eosinophils # (0-0.7) k/uL Basophils # (0-0.2) k/uL PT (9.0-12.0) sec INR (<1.2) APTT (22.0-30.0) sec D-Dimer (<0.60) mg/L FEU Sodium (137-145) mmol/L Potassium (3.5-5.1) mmol/L Chloride (98-107) mmol/L Carbon Dioxide (22-30) mmol/L Anion Gap mmol/L BUN (7-17) mg/dL Creatinine (0.52-1.04) mg/dL Est GFR (CKD-EPI)AfAm (>60 ml/min/1.73 sqM) Est GFR (CKD-EPI)NonAf (>60 ml/min/1.73 sqM) Glucose (74-99) mg/dL Calcium (8.4-10.2) mg/dL Magnesium (1.6-2.3) mg/dL Total Bilirubin (0.2-1.3) mg/dL AST (14-36) U/L ALT (4-34) U/L Alkaline Phosphatase (38-126) U/L Troponin I <0.012 (0.000-0.034) ng/mL Total Protein (6.3-8.2) g/dL Albumin (3.5-5.0) g/dL - Radiology Data Radiology results: image reviewed (Chest x-ray shows no acute process) Disposition Clinical Impression: Chest pain Disposition: ADMITTED IP TO THIS HOSP Is patient prescribed a controlled substance at d/c from ED?: No Referrals: Tone Perdomo MD [Primary Care Provider] - 1-2 days Time of Disposition: 11:41 Decision Time: 11:41
--- NOTE | 2021-10-16 10:28 | XR ---
EXAMINATION TYPE: XR chest 2V DATE OF EXAM: 10/16/2021 COMPARISON: 08/28/19 HISTORY: Chest pain TECHNIQUE: Frontal and lateral views of the chest are obtained. FINDINGS: There is no focal air space opacity. No evidence for pneumothorax. No pleural effusion. The cardiac silhouette size is within normal limits. The osseous structures are grossly intact. IMPRESSION: 1. No acute cardiopulmonary process.
[2021-10-16 10:32] LABS: Basophils # (A) 0.1 k/uL (0-0.2); Basophils % (A) 0 %; Eosinophils # (A) 0.1 k/uL (0-0.7); Eosinophils % (A) 1 %; HCT 42.1 % (34.0-46.0); HGB 13.9 gm/dL (11.4-16.0); Lymphocytes # (A) 1.4 k/uL (1.0-4.8); Lymphocytes % (A) 12 %; MCH 29.2 pg (25.0-35.0); MCHC 33.1 g/dL (31.0-37.0); MCV 88.4 fL (80.0-100.0); Mean Platelet Volume 6.6; Monocytes # (A) 0.4 k/uL (0-1.0); Monocytes % (A) 3 %; Neutrophils # (A) 9.8 k/uL (1.3-7.7); Neutrophils % (A) 83 %; Platelet Count 422 k/uL (150-450); RBC 4.77 m/uL (3.80-5.40); RDW 14.3 % (11.5-15.5); WBC 11.8 k/uL (3.8-10.6)
[2021-10-16 10:43] LABS: ALT 20 U/L (4-34); AST 19 U/L (14-36); African American GFR (CKD) >90 (>60 ml/min/1.73 sqM); Albumin 4.1 g/dL (3.5-5.0); Alkaline Phosphatase 98 U/L (38-126); Anion Gap 10 mmol/L; Blood Urea Nitrogen 16 mg/dL (7-17); Carbon Dioxide 23 mmol/L (22-30); Chloride 106 mmol/L (98-107); Glucose 110 mg/dL (74-99); Magnesium 1.9 mg/dL (1.6-2.3); Non-African American GFR(CKD) 84 (>60 ml/min/1.73 sqM); Potassium 3.7 mmol/L (3.5-5.1); Sodium 139 mmol/L (137-145); Total Bilirubin 0.5 mg/dL (0.2-1.3); Total Protein 7.9 g/dL (6.3-8.2)
[2021-10-16 10:45] LABS: INR 0.9 (<1.2); Partial Thromboplastin Time 25.8 sec (22.0-30.0); Prothrombin Time 10.1 sec (9.0-12.0)
[2021-10-16] MEDS ORDERED: NITROGLYCERIN SL TABS 0.4 MG TAB SUBLINGUAL PRN (11:41)
[2021-10-16] MEDS ORDERED: KETOROLAC 15 MG/ML 1 ML VIAL IVP STA (16:02)
[2021-10-16 17:27] LABS: Appearance,Urine Clear (Clear); Bacteria,Urine Moderate /hpf; Bilirubin,Urine Negative (Negative); Blood,Urine Negative (Negative); Color,Urine Light Yellow; Glucose,Urine (UA) Negative (Negative); Ketones,Urine Negative (Negative); Leukocyte Esterase,Urine Negative (Negative); Mucus,Urine Rare /hpf; Nitrite,Urine Positive (Negative); Protein,Urine Negative (Negative); RBC,Urine <1 /hpf (0-5); Specific Gravity,Urine 1.007 (1.001-1.035); Squamous Epithelial Cell,Urine 1 /hpf (0-4); Urobilinogen,Urine <2.0 mg/dL (<2.0); WBC,Urine 2 /hpf (0-5)
[2021-10-17] MEDS ORDERED: CYCLOBENZAPRINE 10 MG TAB PO PRN
--- NOTE | 2021-10-17 00:57 | P.HPIM ---
History of Present Illness H&P Date: 10/16/21 Chief Complaint: chest pain Patient is a 51-year-old female with a known history of Nuris's thyroiditis, depression presents to ER with complaints of chest pain. Patient states that she woke up with pain this morning with pain on the left lower rib cage. Pain is mainly dull aching type and felt like when she had sternal fracture previously. No radiation of the pain. Pain gets worse with movement and change of position. No associated nausea or vomiting or diaphoresis. No headache or dizziness or lightheadedness. There is also some discomfort in left mid upper back. No fever no chills. No cough or sputum production. Denies any recent illnesses. Denied dysuria or hematuria.. Patient states that she went to her chiropractor yesterday morning. Chest x-ray showed no acute cardiopulmonary process. EKG showed sinus rhythm. Laboratory data showed WBC 11.8 hemoglobin 13.9 and platelets 422 neutrophils 9.8 D-dimer 0.2 Sodium 139 potassium 3.7 chloride 106 bicarb is 23 BUN 16 and creatinine 0.83 Troponin x3 negative Review of Systems Constitutional: Patient denies any fever or chills . No generalized weakness or weight loss. Abdomen: Patient denied nausea vomiting and diarrhea . Patient does have left flank pain. No abdominal pain. Cardiovascular: Patient denies any chest pain or short of breath no palpitations. Respiratory: patient denied any cough is from production. No shortness of breath Neurologic: Patient denied any numbness or tingling headache. Musculoskeletal: Patient denies any complaints of joint swelling or deformity. Skin: Negative Psychiatric: Negative Endocrine: No heat or cold intolerance. No recent weight gain. Genitourinary: No dysuria or hematuria. All other 14 point ROS negative except the above Past Medical History Past Medical History: Thyroid Disorder Additional Past Medical History / Comment(s): nuris thyroiditis 2 nodules on the right side History of Any Multi-Drug Resistant Organisms: None Reported Past Surgical History: Section Additional Past Surgical History / Comment(s): eye surgery Additional Past Anesthesia/Blood Transfusion Reaction / Comment(s): during c section too high from spinal intubated Past Psychological History: Depression Smoking Status: Never smoker Past Alcohol Use History: Rare Past Drug Use History: None Reported - Past Family History Mother Family Medical History: COPD, Coronary Artery Disease (CAD), Mitral Valve Prolapse (MVP) Medications and Allergies Home Medications Medication Instructions Recorded Confirmed Type Levothyroxine Sodium [Levoxyl] 75 mcg PO DAILY 01/16/19 10/16/21 History Albuterol Sulfate [Ventolin HFA] 2 puff INHALATION RT-Q4H PRN 10/16/21 10/16/21 History Atorvastatin [Lipitor] 20 mg PO DAILY 10/16/21 10/16/21 History Cetirizine HCl [Zyrtec] 10 mg PO HS 10/16/21 10/16/21 History Cyclobenzaprine [Flexeril] 5 mg PO HS PRN 10/16/21 10/16/21 History Escitalopram [Lexapro] 20 mg PO DAILY 10/16/21 10/16/21 History Fluticasone Nasal [place] [Flonase 1 spray EA NOSTRIL BID 10/16/21 10/16/21 Hist ory Nasal [place]] Magnesium 250 mg PO DAILY 10/16/21 10/16/21 History Montelukast [Singulair] 10 mg PO HS 10/16/21 10/16/21 History SUMAtriptan succinate [Imitrex] 50 mg PO DAILY PRN 10/16/21 10/16/21 History Selenium 50 mcg PO DAILY 10/16/21 10/16/21 History Topiramate [Topamax] 50 mg PO HS 10/16/21 10/16/21 History rOPINIRole HCL [Requip] 1 mg PO HS 10/16/21 10/16/21 History Allergies Allergy/AdvReac Type Severity Reaction Status Date / Time morphine Allergy Itching Verified 10/16/21 11:57 Physical Exam Vitals: Vital Signs Temp Pulse Pulse Resp BP BP Pulse Ox 10/16/21 14:07 97.4 F L 90 17 113/76 96 10/16/21 13:00 97.7 F 83 20 100/62 98 10/16/21 12:09 84 16 104/74 99 10/16/21 10:00 97.9 F 101 H 20 123/83 100 Intake and Output 10/16/21 10/16/21 10/16/21 06:59 14:59 22:59 Intake Total 180 Balance 180 Intake: Oral 180 Other: # Voids 0 # Bowel Movements 0 Weight 83.915 kg PHYSICAL EXAMINATION: Patient is lying in the bed comfortably, no acute distress, awake alert and oriented.. HEENT: Normocephalic. Neck is supple. Pupils reactive. Nostrils clear. Oral cavity is moist. Neck reveals no JVD, carotid bruits, or thyromegaly. CHEST EXAMINATION: Trachea is central. Symmetrical expansion. Lung jimenez clear to auscultation and percussion. CARDIAC: Normal S1, S2 with no gallops. No murmurs ABDOMEN: Soft. Left flank tenderness. Bowel sounds normal. No organomegaly. No abdominal bruits. Extremities: reveal no edema. No clubbing or cyanosis Neurologically awake, alert, oriented x3 with well-coordinated movements. No focal deficits noted Skin: No rash or skin lesions. Psychiatric: Coperative. Nonsuicidal Musculoskeletal: No joint swelling or deformity. Normal range of motion. Results CBC & Chem 7: 10/17/21 06:06 10/17/21 06:06 Labs: Abnormal Lab Results - Last 24 Hours (Table) 10/16/21 10/16/21 Range/Units 10:21 10:21 WBC 11.8 H (3.8-10.6) k/uL Neutrophils # 9.8 H (1.3-7.7) k/uL Glucose 110 H (74-99) mg/dL Thrombosis Risk Factor Assmnt - DVT/VTE Prophylaxis DVT/VTE Prophylaxis: Pharmacologic Prophylaxis ordered - Choose All That Apply Any of the Below Risk Factors Present?: Yes Each Factor Represents 1 point: Age 41-60 years, Obesity (BMI >25) Other Risk Factors: No Other congenital or acquired thrombophilia - If yes, enter type in comment: No Thrombosis Risk Factor Assessment Total Risk Factor Score: 2 Thrombosis Risk Factor Assessment Level: Low Risk Assessment and Plan Assessment: Left lower chest pain and flank pain. Possible acute pyelonephritis Chest pain. Ruled out ACS. Nuris's thyroiditis. On levothyroxine at home. Anxiety DVT prophylaxis with heparin subcu Plan: Patient will be continued on telemetry monitoring. Serial EKG and troponin x3 negative. Urinalysis was ordered for possible pyelonephritis. Continue with pain management. Cardiology was consulted due to family history of coronary artery disease. We will continue to follow closely. Time with Patient: Greater than 30
[2021-10-17] MEDS: LEVOTHYROXINE 75 MCG TAB PO SCH (05:37)
[2021-10-17] MEDS: ALBUTEROL NEBULIZED 2.5 MG/3 ML INHALATION PRN ×2 (07:00→15:36)
[2021-10-17] MEDS: ASPIRIN 325 MG TAB PO SCH (07:34)
[2021-10-17] MEDS: FLUTICASONE 50MCG/SPRAY NASAL 16GM EA NOSTRIL SCH ×2 (07:34→19:33)
[2021-10-17] MEDS: ESCITALOPRAM 20 MG TAB PO SCH (07:34)
[2021-10-17] MEDS: MAGNESIUM OXIDE 400 MG TAB PO SCH (07:35)
[2021-10-17] MEDS: ATORVASTATIN 20 MG TAB PO SCH (07:35)
[2021-10-17 08:49] LABS: Basophils # (A) 0.07 X 10*3/uL (0.00-0.10); Basophils % (A) 0.7 %; Eosinophils # (A) 0.03 X 10*3/uL (0.04-0.35); Eosinophils % (A) 0.3 %; HCT 40.8 % (37.2-46.3); HGB 12.9 g/dL (12.0-15.0); Immature Grans, Automated 0.4 %; Lymphocytes # (A) 1.54 X 10*3/uL (0.90-5.00); Lymphocytes % (A) 14.9 %; MCH 28.1 pg (27.0-32.0); MCHC 31.6 g/dL (32.0-37.0); MCV 88.9 fL (80.0-97.0); Mean Platelet Volume 9.4 fL (9.5-12.2); Monocytes # (A) 0.59 X 10*3/uL (0.20-1.00); Monocytes % (A) 5.7 %; NRBC Per 100 WBC 0 /100 WBCS (0.0-0.0); Neutrophils # (A) 8.09 X 10*3/uL (1.80-7.70); Platelet Count 351 X 10*3/uL (140-440); RBC 4.59 X 10*6/uL (4.10-5.20); RDW 14.6 % (11.5-14.5); WBC 10.36 X 10*3/uL (4.50-10.00)
[2021-10-17 08:59] LABS: Chol/HDL Ratio 3.69 Ratio
[2021-10-17] MEDS ORDERED: NON FORMULARY DRUG (Selenium [Selenium] 50 MCG Tablet) PO SCH (09:00)
--- NOTE | 2021-10-17 10:50 | P.CRDCN ---
History of Present Illness History of present illness: HISTORY OF PRESENTING ILLNESS This is a pleasant 51-year-old female past medical history significant for hashimotos disease, depression and family history of CAD. 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 We have been asked to see in consultation for chest pain. She woke up yesterday morning with a discomfort in the left back under the shoulder blade that radiated around under her breast and into the mid sternal and precordial region. It is described as a sharp stabbing pain that is exacerbated by deep inspiration or movement of her torso. DIAGNOSTICS EKG reveals sinus rhythm with incomplete right bundle-branch block. Telemetry tracings indicate sinus rhythm. Chest xray negative for an acute cardiopulmonary process. Laboratory reviewed, troponins negative 3. Current cardiac medications include atorvastatin 10 mg daily. REVIEW OF SYSTEMS At the time of my exam: CONSTITUTIONAL: Denies fever or chills. CARDIOVASCULAR: Complains of chest pain. Denies shortness of breath, orthopnea, PND or palpitations. RESPIRATORY: Denies cough. GASTROINTESTINAL: Denies abdominal pain, diarrhea, constipation, nausea or vomiting. MUSCULOSKELETAL: Denies myalgias. NEUROLOGIC: Denies numbness, tingling, headache or weakness. ENDOCRINE: Denies fatigue, weight change, polydipsia or polyurina. GENITOURINARY: Denies burning, hematuria or urgency with micturation. HEMATOLOGIC: Denies history of anemia or bleeding. PHYSICAL EXAMINATION Blood pressure 88/61 heart rate 70 afebrile and maintaining oxygen saturation on room air. CONSTITUTIONAL: No apparent distress. HEENT: Head is normocephalic. Pupils are equal, round. Sclerae anicteric. Mucous membranes of the mouth are moist. No JVD. No carotid bruit. CHEST EXAMINATION: Lungs are clear to auscultation. Positive chest wall tenderness is noted on palpation and with deep breathing. HEART EXAMINATION: Regular rate and rhythm. S1, S2 heard. No murmurs, gallops or rub. ABDOMEN: Soft, nontender. EXTREMITIES: 2+ peripheral pulses, no lower extremity edema and no calf ten derness. NEUROLOGIC EXAMINATION: Patient is awake, alert and oriented x3. ASSESSMENT Chest pain, pleuritic Urinary tract infection Leukocytosis PLAN And acute coronary event has been ruled out. Pain is atypical and pleuritic. Stable for discharge from a cardiac perspective, follow-up in the office in one to 2 weeks. Thank you kindly for this consultation. Nurse Practitioner note has been reviewed, I agree with a documented findings and plan of care. Patient was seen and examined. Past Medical History Past Medical History: Thyroid Disorder Additional Past Medical History / Comment(s): nuris thyroiditis 2 nodules on the right side History of Any Multi-Drug Resistant Organisms: None Reported Past Surgical History: Section Additional Past Surgical History / Comment(s): eye surgery Additional Past Anesthesia/Blood Transfusion Reaction / Comment(s): during c section too high from spinal intubated Past Psychological History: Depression Smoking Status: Never smoker Past Alcohol Use History: Rare Past Drug Use History: None Reported - Past Family History Mother Family Medical History: COPD, Coronary Artery Disease (CAD), Mitral Valve Prolapse (MVP) Medications and Allergies Home Medications Medication Instructions Recorded Confirmed Type Levothyroxine Sodium [Levoxyl] 75 mcg PO DAILY 01/16/19 10/16/21 History Albuterol Sulfate [Ventolin HFA] 2 puff INHALATION RT-Q4H PRN 10/16/21 10/16/21 History Atorvastatin [Lipitor] 20 mg PO DAILY 10/16/21 10/16/21 History Cetirizine HCl [Zyrtec] 10 mg PO HS 10/16/21 10/16/21 History Cyclobenzaprine [Flexeril] 5 mg PO HS PRN 10/16/21 10/16/21 History Escitalopram [Lexapro] 20 mg PO DAILY 10/16/21 10/16/21 History Fluticasone Nasal [place] [Flonase 1 spray EA NOSTRIL BID 10/16/21 10/16/21 History Nasal [place]] Magnesium 250 mg PO DAILY 10/16/21 10/16/21 History Montelukast [Singulair] 10 mg PO HS 10/16/21 10/16/21 History SUMAtriptan succinate [Imitrex] 50 mg PO DAILY PRN 10/16/21 10/16/21 History Selenium 50 mcg PO DAILY 10/16/21 10/16/21 History Topiramate [Topamax] 50 mg PO HS 10/16/21 10/16/21 History rOPINIRole HCL [Requip] 1 mg PO HS 10/16/21 10/16/21 History Allergies Allergy/AdvReac Type Severity Reaction Status Date / Time morphine Allergy Itching Verified 10/16/21 11:57 Physical Exam Vitals: Vital Signs Temp Pulse Pulse Pulse Resp BP BP 10/17/21 07:15 70 10/17/21 07:04 72 10/17/21 07:00 97.2 F L 82 16 10/17/21 02:22 97.7 F 70 16 10/16/21 20:00 98 F 83 12 95/65 10/16/21 14:07 97.4 F L 90 17 113/76 10/16/21 13:00 97.7 F 83 20 100/62 10/16/21 12:09 84 16 104/74 10/16/21 10:00 97.9 F 101 H 20 123/83 BP Pulse Ox 10/17/21 07:15 10/17/21 07:04 97 10/17/21 07:00 88/61 100 10/17/21 02:22 98/60 97 10/16/21 20:00 98 10/16/21 14:07 96 10/16/21 13:00 98 10/16/21 12:09 99 10/16/21 10:00 100 Intake and Output 10/16/21 10/17/21 10/17/21 22:59 06:59 14:59 Intake Total 680 Output Total 25 Balance 680 -25 Intake: Oral 680 Output: Urine 25 Other: # Voids 2 Results 10/17/21 06:06 10/16/21 10:21 Cardiac Enzymes 10/16/21 10/16/21 10/16/21 Range/Units 10:21 10:21 13:55 AST 19 (14-36) U/L Troponin I <0.012 <0.012 (0.000-0.034) ng/mL 10/16/21 Range/Units 16:17 AST (14-36) U/L Troponin I <0.012 (0.000-0.034) ng/mL Coagulation 10/16/21 Range/Units 10:21 PT 10.1 (9.0-12.0) sec APTT 25.8 (22.0-30.0) sec CBC 10/16/21 10/17/21 Range/Units 10:21 06:06 WBC 11.8 H 10.36 H (3.8-10.6) k/uL RBC 4.77 4.59 (3.80-5.40) m/uL Hgb 13.9 12.9 (11.4-16.0) gm/dL Hct 42.1 40.8 (34.0-46.0) % Plt Count 422 351 (150-450) k/uL Comprehensive Metabolic Panel 10/16/21 Range/Units 10:21 Sodium 139 (137-145) mmol/L Potassium 3.7 (3.5-5.1) mmol/L Chloride 106 (98-107) mmol/L Carbon Dioxide 23 (22-30) mmol/L BUN 16 (7-17) mg/dL Creatinine 0.83 (0.52-1.04) mg/dL Glucose 110 H (74-99) mg/dL Calcium 9.0 (8.4-10.2) mg/dL AST 19 (14-36) U/L ALT 20 (4-34) U/L Alkaline Phosphatase 98 (38-126) U/L Total Protein 7.9 (6.3-8.2) g/dL Albumin 4.1 (3.5-5.0) g/dL Current Medications Generic Name Dose Route Start Last Admin Trade Name Freq PRN Reason Stop Dose Admin Albuterol Sulfate 2.5 mg 10/16/21 23:12 10/17/21 07:00 Albuterol Nebulized 2.5 Mg/3 Ml INHALATION 2.5 mg RT-Q4H PRN Administration Shortness Of Breath Aspirin 325 mg 10/17/21 09:00 10/17/21 07:34 Aspirin 325 Mg Tab PO 325 mg DAILY PANCHITO Administration Atorvastatin Calcium 20 mg 10/17/21 09:00 10/17/21 07:35 Atorvastatin 20 Mg Tab PO 20 mg DAILY PANCHITO Administration Cyclobenzaprine HCl 5 mg 10/17/21 00:00 10/17/21 00:52 Cyclobenzaprine 10 Mg Tab PO 5 mg HS PRN Administration Pain Escitalopram Oxalate 20 mg 10/17/21 09:00 10/17/21 07:34 Escitalopram 20 Mg Tab PO 20 mg DAILY PANCHITO Administration Fluticasone Propionate 1 spray 10/17/21 09:00 10/17/21 07:34 Fluticasone 50mcg/[place] Nasal 16gm EA NOSTRIL 1 spray BID PANCHITO Administration Ceftriaxone Sodium 1 gm/ 50 mls @ 100 mls/hr 10/17/21 01:00 10/17/21 02:29 Sodium Chloride IVPB 100 mls/hr Q24H PANCHITO Administration Protocol Levothyroxine Sodium 75 mcg 10/17/21 06:30 10/17/21 05:37 Levothyroxine 75 Mcg Tab PO 75 mcg DAILY@0630 PANCHITO Administration Loratadine 10 mg 10/17/21 21:00 Loratadine 10 Mg Tab PO HS [facility] Magnesium Oxide 200 mg 10/17/21 09:00 10/17/21 07:35 Magnesium Oxide 400 Mg Tab PO 200 mg DAILY PANCH[facility]O Administration Montelukast Sodium 10 mg 10/17/21 21:00 Montelukast 10 Mg Tab PO HS [facility] Nitroglycerin 0.4 mg 10/16/21 11:41 10/16/21 12:10 Nitroglycerin Sl Tabs 0.4 Mg Tab SUBLINGUAL 0.4 mg Q5M PRN Administration Chest Pain Ropinirole HCl 1 mg 10/17/21 00:00 10/17/21 00:52 Ropinirole Hcl 1 Mg Tab PO 1 mg HS [facility]CH[facility]O Administration Sodium Chloride 10 ml 10/16/21 21:00 10/17/21 07:33 Sodium Chloride 0.9% Flush 10 Ml Syringe IV 10 ml BID [facility]CH[facility]O Administration Topiramate 50 mg 10/17/21 21:00 Topiramate 25 Mg Tab PO HS [facility] Intake and Output 10/16/21 10/17/21 10/17/21 22:59 06:59 14:59 Intake Total 680 Output Total 25 Balance 680 -25 Intake: Oral 680 Output: Urine 25 Other: # Voids 2 10/17/21 06:06 10/16/21 10:21
--- NOTE | 2021-10-17 12:46 | US ---
EXAMINATION TYPE: US kidneys/renal and bladder DATE OF EXAM: 10/17/2021 COMPARISON: NONE CLINICAL HISTORY: Left flank pain. Left flank pain. EXAM MEASUREMENTS: Right Kidney: 9.7 x 3.8 x 3.7 cm Left Kidney: 10.8 x 5.5 x 5.0 cm Right Kidney: No hydronephrosis or masses seen Left Kidney: No hydronephrosis or masses seen Bladder: Anechoic not fully distended. Bilateral Jets seen: No There is no evidence for hydronephrosis at this point in time. No nephrolithiasis is seen. No galileo s are identified. The urinary bladder is anechoic. IMPRESSION: No distinct abnormality appreciated.
[2021-10-17] MEDS ORDERED: KETOROLAC 15 MG/ML 1 ML VIAL IVP PRN (13:24)
[2021-10-17 14:25] LABS: BUN/Creat Ratio 21.22 Ratio (12.00-20.00); Blood Urea Nitrogen 19.1 mg/dL (9.0-27.0); Calcium 8.6 mg/dL (8.7-10.3); Chloride 107 mmol/L (96-109); Glucose 113 mg/dL (70-110); Non-African American GFR(CKD) 75.1 (60.0-200.0); Potassium 4.2 mmol/L (3.5-5.5); Sodium 138 mmol/L (135-145)
[2021-10-17 14:40] LABS: Carbon Dioxide 19.9 mmol/L (20.0-27.5)
[2021-10-17] MEDS ORDERED: LORATADINE 10 MG TAB PO SCH (21:00)
[2021-10-17] MEDS ORDERED: TOPIRAMATE 25 MG TAB PO SCH (21:00)
[2021-10-17] MEDS ORDERED: MONTELUKAST 10 MG TAB PO SCH (21:00)
[2021-10-18 02:06] VITALS: RESP 16
[2021-10-18] MEDS: LEVOTHYROXINE 75 MCG TAB PO SCH (05:36)
[2021-10-18] MEDS: ESCITALOPRAM 20 MG TAB PO SCH (07:26)
[2021-10-18] MEDS: FLUTICASONE 50MCG/SPRAY NASAL 16GM EA NOSTRIL SCH (07:27)
[2021-10-18] MEDS: ATORVASTATIN 20 MG TAB PO SCH (07:27)
[2021-10-18] MEDS: ASPIRIN 325 MG TAB PO SCH (07:27)
[2021-10-18] MEDS: MAGNESIUM OXIDE 400 MG TAB PO SCH (07:27)
[2021-10-18 07:59] VITALS: BP 130/85; PULSE 71; TEMP 97.8
--- NOTE | 2021-10-18 09:52 | P.PN ---
Subjective Progress Note Date: 10/17/21 Patient is a 51-year-old female with a known history of Brian's thyroiditis, depression presents to ER with complaints of chest pain. Patient states that she woke up with pain this morning with pain on the left lower rib cage. Pain is mainly dull aching type and felt like when she had sternal fracture previously. No radiation of the pain. Pain gets worse with movement and change of position. No associated nausea or vomiting or diaphoresis. No headache or dizziness or lightheadedness. There is also some discomfort in left mid upper back. No fever no chills. No cough or sputum production. Denies any recent illnesses. Denied dysuria or hematuria.. Patient states that she went to her chiropractor yesterday morning. Chest x-ray showed no acute cardiopulmonary process. EKG showed sinus rhythm. Laboratory data showed WBC 11.8 hemoglobin 13.9 and platelets 422 neutrophils 9.8 D-dimer 0.2 Sodium 139 potassium 3.7 chloride 106 bicarb is 23 BUN 16 and creatinine 0.83 Troponin x3 negative 10/17/2021 Patient is currently resting rotated awake alert and oriented 3. Left flank pain did improve compared to yesterday. Otherwise patient is being continued on antibiotics the form of ceftriaxone. No fever no chills. Denied any chest pain or shortness of breath. Ultrasound of the renal showed no evidence of hydronephrosis. Follow-up urine culture report. No nausea vomiting or abdominal pain or diarrhea. No cough or sputum production. Laboratory data reviewed. Current medications reviewed. Objective - Vital Signs Vital signs: Vital Signs Temp 97.2 F L 10/17/21 07:00 Pulse 70 10/17/21 07:15 Resp 16 10/17/21 07:00 BP 88/61 10/17/21 07:00 Pulse Ox 97 10/17/21 07:04 Intake & Output 10/16/21 10/17/21 10/17/21 18:59 06:59 18:59 Intake Total 860 118 Output Total 25 Balance 860 93 Weight 83.915 kg Intake: Oral 860 118 Output: Urine 25 Other: # Voids 1 2 # Bowel Movements 0 - Labs CBC & Chem 7: 10/17/21 06:06 10/17/21 06:06 Labs: Abnormal Lab Results - Last 24 Hours (Table) 10/16/21 10/17/21 Range/Units 17:03 06:06 WBC 10.36 H (4.50-10.00) X 10*3/uL MCHC 31.6 L (32.0-37.0) g/dL RDW 14.6 H (11.5-14.5) % MPV 9.4 L (9.5-12.2) fL Neutrophils # 8.09 H (1.80-7.70) X 10*3/uL Eosinophils # 0.03 L (0.04-0.35) X 10*3/uL Urine Nitrite Positive H (Negative) Urine Bacteria Moderate H (None) /hpf Urine Mucus Rare H (None) /hpf Assessment and Plan Assessment: Acute pyelonephritis. Patient presented with Left lower chest pain and flank pain. Chest pain. Ruled out ACS. Brian's thyroiditis. On levothyroxine at home. Anxiety DVT prophylaxis with heparin subcu Plan: Patient will be continued on telemetry monitoring. Serial EKG and troponin x3 negative. Continue with antibiotics in the form of ceftriaxone. Follow-up urine culture report.. Continue with pain management. Cardiology was consulted due to family history of coronary artery disease. No further cardiac workup recommended at this time. We will continue to follow closely. Time with Patient: Greater than 30
[2021-10-18 09:54] LABS: African American GFR (CKD) 118.8 (60.0-200.0); Anion Gap 8.8 mmol/L (10.00-18.00); BUN/Creat Ratio 21.31 Ratio (12.00-20.00); Blood Urea Nitrogen 14.6 mg/dL (9.0-27.0); Calcium 8.8 mg/dL (8.7-10.3); Carbon Dioxide 24.2 mmol/L (20.0-27.5); Non-African American GFR(CKD) 102.5 (60.0-200.0); Potassium 4.5 mmol/L (3.5-5.5)
[2021-10-18 10:09] LABS: Basophils # (A) 0.06 X 10*3/uL (0.00-0.10); Basophils % (A) 0.7 %; Eosinophils # (A) 0 X 10*3/uL (0.04-0.35); Eosinophils % (A) 0 %; HCT 41.1 % (37.2-46.3); HGB 12.9 g/dL (12.0-15.0); Immature Grans, Automated 0.1 %; Lymphocytes # (A) 1.75 X 10*3/uL (0.90-5.00); Lymphocytes % (A) 19.8 %; MCHC 31.4 g/dL (32.0-37.0); MCV 89.3 fL (80.0-97.0); Mean Platelet Volume 9.7 fL (9.5-12.2); Monocytes # (A) 0.57 X 10*3/uL (0.20-1.00); Monocytes % (A) 6.5 %; NRBC Per 100 WBC 0 /100 WBCS (0.0-0.0); Neutrophils # (A) 6.44 X 10*3/uL (1.80-7.70); Neutrophils % (A) 72.9 %; Platelet Count 352 X 10*3/uL (140-440); RDW 14.7 % (11.5-14.5); WBC 8.83 X 10*3/uL (4.50-10.00)
== END 2021-10-18 12:08 | disposition home or self-care (01) ==
LOC: EC 09:58 → 6NMEDSUR 11:41
PROVIDERS: ADMIT Internal Medicine; ATTEND Internal Medicine
DX: N10 Acute pyelonephritis (principal); R07.89 Other chest pain; E06.3 Autoimmune thyroiditis; F41.9 Anxiety disorder, unspecified; R07.81 Pleurodynia; R06.02 Shortness of breath; F32.A Depression, unspecified; I45.10 Unspecified right bundle-branch block; E66.9 Obesity, unspecified; Z68.36 Body mass index [BMI] 36.0-36.9, adult; Z87.81 Personal history of (healed) traumatic fracture; Z79.890 Hormone replacement therapy; Z79.899 Other long term (current) drug therapy; Z88.5 Allergy status to narcotic agent; Z82.49 Family history of ischemic heart disease and other diseases of the circulatory system; Z82.5 Family history of asthma and other chronic lower respiratory diseases
CPT/HCPCS: 96376; 96365; 96366 ×2; 96375; 99285; 36415; 94640 ×2; 94760; 93005; 85379; 80061; 80053; 80048 ×2; 83735; 84484; 85025 ×3; 85610; 85730; 81001; 87086; 71046; 76770; G0378 ×4; J0696 ×2; J1885 ×2

== ENCOUNTER → 2022-06-29 | Outpatient (CLI) | payer OTHER ==
--- NOTE | 2022-06-29 09:43 | US ---
EXAMINATION TYPE: US abdomen complete DATE OF EXAM: 06/29/2022 COMPARISON: Renal US CLINICAL HISTORY: R10.11 RT UPPER QUAD PAIN. RUQ pain. TECHNIQUE: Multiple sonographic images of the abdomen are obtained. FINDINGS: EXAM MEASUREMENTS: Liver Length: 15.0 cm Gallbladder Wall: 0.21 cm CBD: 0.79 cm Spleen: 9.2 cm Right Kidney: 9.9 x 4.9 x 4.4 cm Left Kidney: 11.3 x 5.2 x 5.3 cm ADMINISTRATIVE ASSISTANT COORDINATOR NOTES: Limited due to gas. Pancreas: Limited due to gas. Appears hyperechoic. Liver: Indistinct, hypoechoic area seen adjacent to the gallbladder: 1.5 x 1.1 x 1.6 cm. Gallbladder: Appears anechoic. Measures 9.0 cm in length. Evidence for sonographic Hung's sign: No CBD: Appears dilated. Spleen: Appears wnl Right Kidney: No hydronephrosis or masses seen Left Kidney: Appears triangular in shape. Upper IVC: Appears wnl Abd Aorta: Appears wnl IMPRESSION: 1. Hepatic steatosis with focal fatty sparing next to the gallbladder fossa. 2. No evidence for acute process.
== END | disposition home or self-care (01) ==
LOC: RADUSWWP 08:25
PROVIDERS: ATTEND Family Medicine
DX: K76.0 Fatty (change of) liver, not elsewhere classified (principal); R10.11 Right upper quadrant pain
CPT/HCPCS: 76700

== ENCOUNTER → 2022-12-02 | Outpatient (CLI) | payer OTHER | END | disposition home or self-care (01) | LOC: LABWHC1 09:27 | PROVIDERS: ATTEND Transplant Surgery | DX: Z00.5 Encounter for examination of potential donor of organ and tissue (principal) | CPT/HCPCS: 86900; 86901 ==

== ENCOUNTER → 2022-12-09 | Outpatient (CLI) | payer OTHER ==
--- NOTE | 2022-12-09 09:28 | XR ---
EXAMINATION TYPE: XR lumbosacral spine min 4V DATE OF EXAM: 12/09/2022 7:31 AM INDICATION: Patient age:Female; 52 years old; Reason for study: M54.41; COMPARISON: None TECHNIQUE: Frontal, lateral and coned in L5-S1 lateral views of the spine. FINDINGS: No evidence of any acute osseous pathology. No evidence of loss of vertebral body height i s seen. There is normal alignment of the lumbar vertebral bodies. Mild scattered disc space narrowing . Multilevel marginal osteophyte formation throughout the visualized spine. There is facet joint arth ropathy throughout the spine. Scattered at least mild neural foraminal stenosis. IMPRESSION: 1. No acute fracture. 2. Mild multilevel disc degeneration.
== END | disposition home or self-care (01) ==
LOC: RADXRMAIN 07:05
PROVIDERS: ATTEND Family Medicine
DX: M51.37 Other intervertebral disc degeneration, lumbosacral region (principal); M54.41 Lumbago with sciatica, right side
CPT/HCPCS: 72110

== ENCOUNTER → 2022-12-09 | Outpatient (CLI) | payer OTHER ==
[2022-12-09 15:57] LABS: ALT 49 U/L (8-44); AST 34 U/L (13-35); Albumin 4.8 d/dL (3.8-4.9); Albumin/Globulin Ratio 1.45 Ratio (1.60-3.17); Alkaline Phosphatase 120 U/L (41-126); BUN/Creat Ratio 16.56 Ratio (12.00-20.00); Blood Urea Nitrogen 14.9 mg/dL (9.0-27.0); Calcium 9.8 mg/dL (8.7-10.3); Carbon Dioxide 24.6 mmol/L (21.6-31.8); Chloride 104 mmol/L (96-109); Chol/HDL Ratio 3.64 Ratio; Globulin 3.3 d/dL (1.6-3.3); Glucose 107 mg/dL (70-110); LDL Cholesterol,Calculated 107.4 mg/dL (0.0-131.0); Potassium 4.2 mmol/L (3.5-5.5); Sodium 141 mmol/L (135-145); Total Bilirubin 0.3 mg/dL (0.3-1.2); Total Protein 8.1 d/dL (6.2-8.2)
[2022-12-09 16:06] LABS: Basophils # (A) 0.08 X 10*3/uL (0.00-0.10); Basophils % (A) 0.9 %; Eosinophils # (A) 0.25 X 10*3/uL (0.04-0.35); Eosinophils % (A) 2.8 %; HCT 45.5 % (37.2-46.3); HGB 14.2 d/dL (12.0-15.0); Lymphocytes % (A) 28.7 %; MCH 27.6 pg (27.0-32.0); MCHC 31.2 d/dL (32.0-37.0); MCV 88.5 FL (80.0-97.0); Mean Platelet Volume 9.3 FL (9.5-12.2); Monocytes # (A) 0.65 X 10*3/uL (0.20-1.00); Monocytes % (A) 7.2 %; NRBC Per 100 WBC 0 X 10*3/uL (0.00-0.01); Neutrophils # (A) 5.47 X 10*3/uL (1.80-7.70); Neutrophils % (A) 60.2 %; Platelet Count 437 X 10*3/uL (140-440); RBC 5.14 X 10*6/uL (4.10-5.20); RDW 14.2 % (11.5-14.5); WBC 9.07 X 10*3/uL (4.50-10.00)
== END | disposition home or self-care (01) ==
LOC: LABWHC1 07:42
PROVIDERS: ATTEND Family Medicine
DX: E78.5 Hyperlipidemia, unspecified (principal)
CPT/HCPCS: 36415; 80053; 80061; 84443; 85025

== ENCOUNTER → 2022-12-14 | Outpatient (CLI) | payer OTHER ==
--- NOTE | 2022-12-15 08:11 | MM ---
Reason for Exam: Screening (asymptomatic). Last mammogram was performed 2 year(s) and 10 month(s) ago. Patient History: Menarche at age 14. First Full-Term at age 31. Postmenopausal. Maternal grandmother had breast cancer. Risk Values: Gretel 5 year model risk: 1.1%. NCI Lifetime model risk: 9.9%. Prior Study Comparison: 03/02/2020 Bilateral Screening Mammogram, [facility]. 03/06/2020 Left Diagnostic Mammogram, [facility]. 09/11/2020 Left Diagnostic Mammogram, [facility]. Tissue Density: The breast tissue is heterogeneously dense. This may lower the sensitivity of mammography. Findings: Analyzed By CAD. There is no suspicious group of microcalcifications or new suspicious mass in either breast. Overall Assessment: Benign, BI-RAD 2 Management: Screening Mammogram of both breasts in 1 year. . Patient should continue monthly self-breast exams. A clinical breast exam by your physician is recommended on an annual basis. This exam should not preclude additional follow-up of suspicious palpable abnormalities. Note on Gretel scores and lifetime risk: 1. A Gretel score greater than 3% is considered moderate risk. If this is the case, consider specialist referral to assess eligibility for a risk reducing agent. 2. If overall lifetime risk for the development of breast cancer is 20% or higher, the patient may qualify for future screening with alternating mammogram and breast MRI. Electronically signed and approved by: Mohamud Matson M.D. Radiologis
== END | disposition home or self-care (01) ==
LOC: RADMAMWWP 09:45
PROVIDERS: ATTEND Family Medicine
DX: Z12.31 Encounter for screening mammogram for malignant neoplasm of breast (principal); M54.41 Lumbago with sciatica, right side; Z78.0 Asymptomatic menopausal state; Z80.3 Family history of malignant neoplasm of breast
CPT/HCPCS: 77067

== ENCOUNTER → 2023-06-14 | Outpatient (CLI) | payer OTHER ==
--- NOTE | 2023-06-14 18:47 | US ---
EXAMINATION TYPE: US thyroid st tissue head/neck DATE OF EXAM: 06/14/2023 COMPARISON: US CLINICAL INDICATION: Female, 53 years old with history of E04.1 NONTOXIC SINGLE THYROID NODULE; F/U GLAND SIZE: Right Lobe: 6.9 x 3.0 x 3.6 cm Overall Parenchyma: heterogenous Left Lobe: 6.3 x 2.5 x 2.3 cm Overall Parenchyma: heterogenous Isthmus Thickness: 0.7 cm NODULES RIGHT: # of nodules measured on right: 2 1. 1.1 X 0.7 x 1.1 cm, mid, solid or almost completely solid, hyperechoic nodule, which is wider th an tall, with smooth margins, without echogenic foci. Prior size: 1.2 x 0.7 x 1.1 cm 2. 1.1 X 0.9 x 1.0 cm, mid, solid or almost completely solid, hyperechoic nodule, which is wider th an tall, with smooth margins, without echogenic foci. Prior size: 1.4 x 0.8 x 1.1 cm LEFT: # of nodules measured on left: 0 ISTHMUS: # of nodules measured in the isthmus: 0 Bilateral neck scanned, no evidence of lymphadenopathy. Thyroid heterogeneous, enlarged, hypervascula r- similar findings to prior. Two nodules stable right lobe. IMPRESSION: Heterogenous appearance to the bilateral thyroid lobes. Largest thyroid lobe on the right measures 1. 1 cm. This is mildly suspicious. Consider follow-up in one year. 2017 ACR TI-RADS LEVEL: TR-RADS 3 - Mildly Suspicious: Follow if > 1.5 cm, FNA if > 2.5 cm *Highest TI-RADS level nodule reported
== END | disposition home or self-care (01) ==
LOC: RADUSWWP 12:09
PROVIDERS: ATTEND Family Medicine
DX: E04.2 Nontoxic multinodular goiter (principal)
CPT/HCPCS: 76536

== ENCOUNTER → 2023-09-19 | Outpatient (CLI) | payer OTHER | LOC: CPPFTMAIN 15:53 | PROVIDERS: ATTEND Family Medicine | DX: J45.20 Mild intermittent asthma, uncomplicated (principal); Z88.5 Allergy status to narcotic agent; Z79.899 Other long term (current) drug therapy | CPT/HCPCS: 94060; 94726; 94729 ==

== ENCOUNTER → 2024-01-16 | Outpatient (CLI) | payer OTHER ==
--- NOTE | 2024-01-16 16:26 | CT ---
EXAMINATION TYPE: CT lumbar spine wo con DATE OF EXAM: 01/16/2024 4:16 PM COMPARISON: None HISTORY: low back pain X [address] DLP: 813 mGycm Automated exposure control for dose reduction was used. Unenhanced CT of the lumbar spine was performed. Bone and soft tissue window settings are submitted as well as coronal and sagittal reconstructions. L1-L2: Normal disc space height. No disc herniation protrusion or central stenosis. No facet joint arthropathy. No evidence for foraminal encroachment. L2-L3: Normal disc space height. No disc herniation protrusion or central stenosis. No facet joint arthropathy. No evidence for foraminal encroachment. L3-L4: Normal disc space height. No disc herniation protrusion or central stenosis. No facet joint arthropathy. No evidence for foraminal encroachment. L4-L5: Vacuum changes noted compatible severe degenerative narrowing. Moderate broad-based disc bulge resulting in bilateral lateral recess stenosis and bilateral foraminal encroachment. No evidence for central stenosis. L5-S1: Grade 1 anterolisthesis of 7 mm L5 on S1. Facet joint arthropathy without evidence for spondyl olysis. Broad-based posterior disc bulge and bilateral lateral recess stenosis and bilateral foramina l encroachment. IMPRESSION: 1. Degenerative disc disease as discussed. 2. Grade 1 anterolisthesis L5 on S1. 3. Bilateral lateral recess stenosis and foraminal encroachment at L4-5 and L5-S1.
== END | disposition home or self-care (01) ==
LOC: RADCTMAIN 15:54
PROVIDERS: ATTEND Psychiatry & Neurology Neurology
DX: M51.36 Other intervertebral disc degeneration, lumbar region (principal); M43.17 Spondylolisthesis, lumbosacral region; M48.061 Spinal stenosis, lumbar region without neurogenic claudication; M47.816 Spondylosis without myelopathy or radiculopathy, lumbar region
CPT/HCPCS: 72131

== ENCOUNTER → 2024-03-06 | Outpatient (CLI) | payer OTHER ==
[2024-03-06 15:36] LABS: Basophils # (A) 0.06 X 10*3/uL (0.00-0.10); Basophils % (A) 0.7 %; Eosinophils # (A) 0 X 10*3/uL (0.04-0.35); Eosinophils % (A) 0 %; HCT 42.6 % (37.2-46.3); HGB 13.8 g/dL (12.0-15.0); Lymphocytes # (A) 1.57 X 10*3/uL (0.90-5.00); Lymphocytes % (A) 19.1 %; MCH 27.7 pg (27.0-32.0); MCHC 32.4 g/dL (32.0-37.0); MCV 85.5 FL (80.0-97.0); Monocytes # (A) 0.48 X 10*3/uL (0.20-1.00); Monocytes % (A) 5.8 %; NRBC Per 100 WBC 0 X 10*3/uL (0.00-0.01); Platelet Count 400 X 10*3/uL (140-440); RBC 4.98 X 10*6/uL (4.10-5.20); RDW 14.5 % (11.5-14.5); WBC 8.24 X 10*3/uL (4.50-10.00)
[2024-03-06 21:32] LABS: ALT 27 U/L (8-44); AST 19 U/L (13-35); Albumin 4.4 g/dL (3.8-4.9); Albumin/Globulin Ratio 1.63 Ratio (1.60-3.17); Alkaline Phosphatase 105 U/L (41-126); BUN/Creat Ratio 19.11 Ratio (12.00-20.00); Blood Urea Nitrogen 17.2 mg/dL (9.0-27.0); Carbon Dioxide 21.2 mmol/L (21.6-31.8); Chloride 106 mmol/L (96-109); Chol/HDL Ratio 4.21 Ratio; Globulin 2.7 g/dL (1.6-3.3); Glucose 111 mg/dL (70-110); Potassium 4.1 mmol/L (3.5-5.5); Sodium 139 mmol/L (135-145); Total Bilirubin 0.4 mg/dL (0.3-1.2); Total Protein 7.1 g/dL (6.2-8.2)
== END | disposition home or self-care (01) ==
LOC: LABWHC1 11:05
PROVIDERS: ATTEND Family Medicine
DX: E78.5 Hyperlipidemia, unspecified (principal); R79.9 Abnormal finding of blood chemistry, unspecified
CPT/HCPCS: 36415; 80053; 80061; 83036; 84443; 85025

== ENCOUNTER → 2024-03-26 | Outpatient (CLI) | payer OTHER ==
--- NOTE | 2024-03-29 08:24 | MM ---
Reason for Exam: Screening (asymptomatic). Last mammogram was performed 1 year(s) and 3 month(s) ago. Patient History: Menarche at age 14. First Full-Term at age 31. Postmenopausal. Patient has history of breast feeding. Maternal grandmother had breast cancer. Risk Values: Gretel 5 year model risk: 1.2%. NCI Lifetime model risk: 9.6%. Prior Study Comparison: 03/06/2020 Left Diagnostic Mammogram, [facility]. 09/11/2020 Left Diagnostic Mammogram, [facility]. 12/14/2022 Bilateral MG screening mammo w CAD, [facility]. Tissue Density: The breasts are heterogeneously dense, which may obscure small masses. Findings: Analyzed By CAD. No suspicious breast calcifications. No architectural distortion. No dominant mass. Overall Assessment: Benign, BI-RAD 2 Management: Screening Mammogram of both breasts in 1 year. . Patient should continue monthly self-breast exams. A clinical breast exam by your physician is recommended on an annual basis. This exam should not preclude additional follow-up of suspicious palpable abnormalities. Note on Gretel scores and lifetime risk: 1. A Gretel score greater than 3% is considered moderate risk. If this is the case, consider specialist referral to assess eligibility for a risk reducing agent. 2. If overall lifetime risk for the development of breast cancer is 20% or higher, the patient may qualify for future screening with alternating mammogram and breast MRI. [facility], , 03/29/2024 8:21 AM. Electronically signed and approved by: Torey Calvillo M.D. Radiologis
== END | disposition home or self-care (01) ==
LOC: RADMAMWWP 12:13
PROVIDERS: ATTEND Family Medicine
DX: Z12.31 Encounter for screening mammogram for malignant neoplasm of breast
CPT/HCPCS: 77067

== ENCOUNTER 2024-06-10 06:59 | Day surgery (SDC) | payer OTHER ==
[2024-06-06 15:51] VITALS: BMI 34.9
[~2024-06-10 06:59] MED LIST: SODIUM CHLORIDE 0.9% 1,000 ML IV SCH
[2024-06-10 07:55] VITALS: BP 123/71; RESP 16; TEMP 68.1
[2024-06-10 10:03] VITALS: PULSE 80
--- NOTE | 2024-06-10 19:29 | P.EPPROC ---
- EP Procedure Note Electrophysiology Procedure Note: Diagnosis Recurrent presyncope and lightheadedness Baseline twelve-lead EKG shows sinus rhythm normal NM narrow QRS normal ST segments normal QT interval Tilt table test per protocol Baseline blood pressure 137/71 mmHg Baseline heart rate 64 beats a minute Patient was tilted upright at an angle of 70 degrees per protocol There was no change in heart rate or blood pressure Despite that she reported that she was going to pass out felt dizzy felt lightheaded reported a headache and once again at the end reported that she would pass out During all the symptoms her heart rate and blood pressure remained unchanged Impression Normal twelve-lead EKG Multitude of symptoms including the feeling that she was in a pass out, dizziness lightheadedness without any change in heart rate or blood pressure No evidence for neurocardiogenic syncope, no evidence for dysautonomia
== END 2024-06-10 09:52 | disposition home or self-care (01) ==
LOC: CATHEP 06:59
PROVIDERS: ATTEND Internal Medicine Clinical Cardiac Electrophysiology
DX: R55 Syncope and collapse (principal); R51.9 Headache, unspecified
CPT/HCPCS: 93660

== ENCOUNTER → 2024-09-25 | Outpatient (CLI) | payer OTHER ==
[2024-09-25 15:40] LABS: Blood Urea Nitrogen 17.2 mg/dL (9.0-27.0); Carbon Dioxide 25.4 mmol/L (21.6-31.8); Chloride 107 mmol/L (96-109); Chol/HDL Ratio 3.35 Ratio; Glucose 100 mg/dL (70-110); LDL Cholesterol,Calculated 101.5 mg/dL (0.0-131.0); Potassium 4.4 mmol/L (3.5-5.5); Sodium 141 mmol/L (135-145)
[2024-09-25 15:41] LABS: ALT 21 U/L (8-44); AST 16 U/L (13-35); Albumin/Globulin Ratio 1.67 Ratio (1.60-3.17); Alkaline Phosphatase 109 U/L (41-126); Globulin 2.4 g/dL (1.6-3.3); T4, Free (Free Thyroxine) 0.92 ng/dL (0.80-1.80); Total Bilirubin 0.3 mg/dL (0.3-1.2); Total Protein 6.4 g/dL (6.2-8.2)
[2024-09-25 16:04] LABS: Basophils # (A) 0.06 X 10*3/uL (0.00-0.10); Basophils % (A) 0.7 %; Eosinophils # (A) 0 X 10*3/uL (0.04-0.35); Eosinophils % (A) 0 %; HCT 43.4 % (37.2-46.3); HGB 13.6 g/dL (12.0-15.0); Lymphocytes # (A) 1.15 X 10*3/uL (0.90-5.00); Lymphocytes % (A) 13.7 %; MCH 27.9 pg (27.0-32.0); MCHC 31.3 g/dL (32.0-37.0); MCV 88.9 FL (80.0-97.0); Mean Platelet Volume 8.8 FL (9.5-12.2); Monocytes # (A) 0.69 X 10*3/uL (0.20-1.00); Monocytes % (A) 8.2 %; NRBC Per 100 WBC 0 X 10*3/uL (0.00-0.01); Neutrophils # (A) 6.46 X 10*3/uL (1.80-7.70); Neutrophils % (A) 77.2 %; Platelet Count 358 X 10*3/uL (140-440); RBC 4.88 X 10*6/uL (4.10-5.20); RDW 14.4 % (11.5-14.5); WBC 8.38 X 10*3/uL (4.50-10.00)
== END | disposition home or self-care (01) ==
LOC: LABWHC1 11:28
PROVIDERS: ATTEND Family Medicine
DX: E03.9 Hypothyroidism, unspecified (principal); E55.9 Vitamin D deficiency, unspecified; E78.5 Hyperlipidemia, unspecified; R73.03 Prediabetes
CPT/HCPCS: 36415; 80053; 80061; 82306; 83036; 84439; 84443; 84481; 85025